=== PATIENT | male | born 1985 | race Asian ===

== ENCOUNTER 2016-12-08 20:53 | Emergency (ER) | payer OTHER ==
[~2016-12-08] VITALS: Ht 172.7 cm; Wt 95.5 kg
[2016-12-08] MEDS ORDERED: [UNRECOGNIZED DRUG - CODE] PO (21:10)
[2016-12-08] MEDS ORDERED: ACETAMINOPHEN 325 MG TABLET PO ONE (21:15)
[2016-12-09] MEDS ORDERED: KETOROLAC TROMETHAMINE 30 MG/ML VIAL IVP ONE (00:30)
[2016-12-09] MEDS ORDERED: ALBUTEROL SULFATE HFA 90 MCG/PUFF 8 GM INHALER IH ONE (00:45)
[2016-12-09] MEDS ORDERED: PHENYLEPHRINE/PROMETH/CODEINE 5 ML ORAL.SYG PO ONE (00:45)
[2016-12-09 00:58] LABS: BASOPHILS % (AUTO) 0.1 % (0.0-2.0); EOSINOPHILS % (AUTO) 0.6 % (1.0-6.0); HEMATOCRIT 42.7 % (41-53); HEMOGLOBIN 14.7 g/dL (13.5-17.5); LYMPHOCYTES # (AUTO) 1.4 K/uL (1.0-4.8); LYMPHOCYTES % (AUTO) 8.8 % (22.0-44.0); MEAN CORPUSCULAR HEMOGLOBIN 28.6 pg (26.0-34.0); MEAN CORPUSCULAR HGB CONC 34.3 G/dL (31.0-37.0); MEAN CORPUSCULAR VOLUME 83 fL (80-100); MONOCYTES # (AUTO) 0.5 K/uL (0.1-1.0); NEUTROPHILS # (AUTO) 14.3 K/uL (1.8-7.7); PLATELET COUNT (AUTO) 205 K/uL (150-450); RED BLOOD CELL COUNT(AUTO) 5.14 MIL/uL (4.50-5.90); RED CELL DISTRIBUTION WIDTH 12.5 % (11.5-14.5); WHITE BLOOD COUNT (AUTO) 16.4 K/uL (4.5-11.0)
[2016-12-09 00:59] LABS: NEUTROPHILS % (AUTO) 87.5 % (40.0-70.0)
[2016-12-09 01:04] LABS: ANION GAP 10 mmol/L (8-16); CARBON DIOXIDE 28 mmol/L (22-29); CHLORIDE 103 mmol/L (98-107); CREATININE 0.96 mg/dL (0.60-1.30); GLOMERULAR FILTR. RATE CALC > 60 mL/min (>60); POTASSIUM 3.8 mmol/L (3.5-5.1); SODIUM SERUM 141 mmol/L (136-145); UREA NITROGEN, BLOOD 21 mg/dL (7-18)
[2016-12-09 01:13] LABS: ALANINE AMINOTRANSFERASE 96 U/L (12-78); ASPARTATE AMINOTRANSFERASE 31 U/L (15-37); BILIRUBIN,TOTAL 0.4 mg/dL (0.1-1.0); TOTAL PROTEIN, SERUM 7.4 g/dL (6.4-8.2)
[2016-12-09 01:20] VITALS: BP 137/73
[2016-12-09 01:21] LABS: B-TYPE NATRIURETIC PEPTIDE < 5 pg/mL (0-100)
[2016-12-09] MEDS ORDERED: SODIUM CHLORIDE 0.9% 1,000 ML IV ONE (01:30)
== END 2016-12-09 02:12 | disposition home or self-care (01) ==
LOC: EMS 20:57
DX: J40 Bronchitis, not specified as acute or chronic (principal); F17.210 Nicotine dependence, cigarettes, uncomplicated
CPT/HCPCS: 85379; 93005; 94640; 96361; 96374; 99285; J1885; J2370; J3535; J7030